=== PATIENT | female | born 1955 | race Caucasian/White ===

== ENCOUNTER 2022-02-01 08:00 | Emergency (ER) | payer MEDICARE, BC ==
[~2022-02-01] VITALS: Ht 170.2 cm; Wt 61.2 kg
--- NOTE | 2022-02-01 08:00 | NUR ---
TO ER BED 1. BIBS C/O INSECT BITE ON HER L CHEST YESTERDAY AT 1500 AND STATES SHE HAS STINGING PAIN 4/10. VITALS ARE WITHIN NORMAL LIMITS. WARM BLANKET PROVIDED FOR COMFORT. AWAITING MD ORDERS.
[2022-02-01] MEDS ORDERED: HYDR28.32 TP (08:22)
[2022-02-01] MEDS ORDERED: VALA500T PO (08:22)
[2022-02-01 08:33] VITALS: BP 118/70
--- NOTE | 2022-02-01 08:33 | NUR ---
Patient discharged to home in stable condition. Written and verbal after care instructions given. Patient verbalizes understanding of instruction.
== END 2022-02-01 08:34 | disposition home or self-care (01) ==
LOC: ER 08:05
DX: S20.362A Insect bite (nonvenomous) of left front wall of thorax, initial encounter (principal); B02.9 Zoster without complications; Z79.899 Other long term (current) drug therapy; W57.XXXA Bitten or stung by nonvenomous insect and other nonvenomous arthropods, initial encounter; Y93.89 Activity, other specified; Y92.89 Other specified places as the place of occurrence of the external cause; Y99.8 Other external cause status